=== PATIENT | female | born 1985 | race Caucasian/White ===

== ENCOUNTER 2018-04-14 14:16 | Inpatient (IN) | payer OTHER ==
[~2018-04-14] VITALS: Ht 172.7 cm; Wt 91.0 kg
--- OUTSIDE RECORDS SUMMARY | ~2018-04-14 | XMS | Clinical Summary ---
Demographics + + + | Address | [address] | | | [place] [address] | + + + | Home Phone | | + + + | Preferred Language | Unknown | + + + | Marital Status | | + + + | Mandaeism Affiliation | Unknown | + + + | Race | Unknown | + + + | Ethnic Group | Unknown | + + + Author + + + | Author | [facility] | | | and Rasheed[place] | + + + | Organization | [facility] | | | and [place] | + + + | Address | Unknown | + + + | Phone | Unavailable | + + + Support + + +---------+ + | Name | Relationship | Address | Phone | + + +---------+ + | KERON PEREA | ECON | Unknown | | + + +---------+ + Care Team Providers + +------+ + | Care Senior Hardware Engineer Name | Role | Phone | + +------+ + PP | Unavailable | + +------+ + Allergies Not on File Current Medications Not on file Active Problems Not on file Social History + +-------+ +--------+------+ | Tobacco Use | Types | Packs/Day | Years | Date | | | | | Used | | + +-------+ +--------+------+ | Never Assessed | | | | | + +-------+ +--------+------+ + + + | Sex Assigned at | Date Recorded | | | | + + + | Not on file | | + + + Plan of Treatment + + + + + | Health Maintenance | Due Date | Last Done | Comments | + + + + + | Vaccine: | | | | | Dtap/Tdap/Td (1 - | 4 | | | | Tdap) | | | | + + + + + | Cervical Cancer | | | | | Screening (Pap) | 5 | | | + + + + + | Vaccine: Influenza | | | | | (#1) | 8 | | | + + + + + Results Not on filefrom Last 3 Months Insurance + +--------+ +------+ +---------+ | Payer | Benefi | Subscriber | Type | Phone | Address | | | t Plan | ID | | | | | | / | | | | | | | Group | | | | | + +--------+ +------+ +---------+ | [employer] | PACIFI | [id number] | PPO | [phone] | | | [employer] | | | [id number] | | | | E PSN | | | | | | | PREFER | | | | | | | RED | | | | | + +--------+ +------+ +---------+ + +--------+ +--------+ + + | Guarantor Name | Accoun | Relation to | Date | Phone | Billing Address | | | t Type | Patient | of | | | | | | | | | | + +--------+ +--------+ + + | GEORGES PEREA | Person | Self | [birth year] | Work: | [address] | | | al/Fam | | 1985 | [phone] | [place] [address] | | | mary | | | [phone] Home: | | | | | | | | | | | | | | [phone] | | | | | | [phone] | | + +--------+ +--------+ + +"
--- NOTE | 2018-05-05 08:23 | NUR ---
05/05/18 0823 Lavinia Goodman 0880-PATIENT ARRIVED BACK TO ROOM 105 AWAKE DENIES PAIN OR NAUSEA. SR. RR EVEN. O2 SAT 97% FUNDUS RIGHT SIDE AT UMBILICUS LIGHT RURBRA DRAINAGE. MCCONNELL CATHETER DRAINING CLEAR YELLOW. FAMILY AT BEDSIDE.
--- NOTE | 2018-05-06 08:14 | PR ---
[facility] [address] [facility] [place] [address] Signed PP Progress Notes Datetime Report Generated by CPN: 05/06/2018 08:14 SUBJECTIVE: [id number] Pain: Within normal limits Nausea/Vomiting: Denies Vital Signs: [id number] Vital Signs: Reviewed; Within Normal Limits Notable Details: PP Hgb/Hct = 10.8/33.7 EXAM: [id number] Abdomen/Uterus: Normal Lochia: Normal Extremities: Normal Incision: Normal IMPRESSION/PLAN/PROCEDURES: [id number] Impression: Normal progression Plan: Continue present management Procedures: None Progress Notes: Doing well, without complaint. IV and Smith out, voiding and moving without difficulty. Signing Physician: Jakub Washington MD Copies: ~ *Electronically Signed* 05/06/18813 JAKUB WASHINGTON MD PATIENT NAME: GEORGES VEGA PROGRESS NOTE DATE OF : 83 PHYSICIAN: JAKUB WASHINGTON MD RPT #: [id number] REPORT IS CONFIDENTIAL AND NOT TO BE RELEASED WITHOUT AUTHORIZATION
--- NOTE | 2018-05-06 08:17 | OR ---
[facility] [address] [place] [id number] Signed DATE OF OPERATION: 05/05/2018 SURGEON: Ibrahmia Nicole MD Patient of Dr. Nicole. PREOPERATIVE DIAGNOSIS: Term , previous section x2. POSTOPERATIVE DIAGNOSIS: Term , previous section x2. PROCEDURE PERFORMED: Repeat low transverse segment section, delivery live female infant. DIRECT SUPPORT STAFF MEMBER: Dr. Juárez. ANESTHESIA: Spinal. ESTIMATED BLOOD LOSS: 300 mL. COMPLICATIONS: None. DRAINS: Smith to bladder. FINDINGS: Live female , Apgars 9 and 9. Weight 6 pounds 11 ounces. Uterus had a very thin lower segment with the bladder somewhat elevated, otherwise no adhesions. Normal tubes and ovaries bilateral. DESCRIPTION OF PROCEDURE: The patient was brought to the operating room, placed in supine position. After adequate spinal anesthesia was obtained, she was prepped and draped in usual sterile fashion. A Smith catheter was placed in the bladder. Electronically Signed By: IBRAHIMA NICOLE MD 05/06/18 0817 PATIENT NAME: GEORGES VEGA OPERATIVE REPORT DATE OF : 83 REPORT #: [id number] PHYSICIAN: IBRAHIMA NICOLE MD PCP: ARCENIO MALHOTRA REPORT IS CONFIDENTIAL AND NOT TO BE RELEASED WITHOUT AUTHORIZATION [address] [address] Signed Pfannenstiel skin incision was made with a scalpel through previous skin incision. Subcutaneous tissue was dissected with a scalpel and Bovie. The fascia was nicked with scalpel and extended in transverse fashion using curved scissors. The underlying abdominal musculature was bluntly and sharply from the fascia above and below the incision. The abdominal musculature was bluntly and sharply along the midline. The peritoneum was fairly adherent to the anterior abdominal wall cephalad and this was opened at the same time caudally. The abdominal muscle and peritoneum were with finger dissection and the peritoneum carefully opened with curved Mayos. The Panda self-retaining retractor was inserted into the incision and tightened in place. The lower uterine segment was identified. The bladder was noted to be somewhat elevated up the lower uterine segment, more on the right and on the left, and the lower uterine segment noted to be quite thin. The lower uterine segment was nicked with the scalpel a little bit higher and to avoid the bladder, and the incision extended in a transverse fashion using finger dissection, clear fluid came from the incision. The infant was noted to be in ELLIS presentation. 's head easily delivered from the incision, the rest of the was easily delivered from the incision. The cord was doubly clamped and cut. The passed off the table in good condition to awaiting nurse. Cord blood was obtained, then a small section of cord was clamped and cut, and passed off to be held, the placenta was then manually removed, the uterine cavity explored a lap pad to remove any retained membranes. The incision was quite thin. Angle stitch of 0 Monocryl was placed at one in the incision and a running locking stitch of 0 Monocryl starting at the other end used to close the incision. Care was taken particularly on the right side to avoid the bladder, which was very close to the incision. A 2nd running stitch of 0 Monocryl was used to imbricate the 1st layer, again stopping before reaching the right angle because of the closeness of the bladder. Good hemostasis was noted except for one small area on the left side above the incision, this was closed with a gxcaxh-vc-bjzyz stitch of 0 Monocryl. When good hemostasis was obtained, the entire pelvis was irrigated, suctioned, examined, and noted to have good hemostasis. The Panda retractor was removed and sheet of ACell was placed over lower uterine segment to help with healing. The anterior wall peritoneum was closed using running stitch of 2-0 Vicryl suture. The abdominal musculature was reapproximated using interrupted stitches of 0 Vicryl suture. The abdominal wall incision was irrigated, suctioned, examined, any bleeding spots cauterized with the Bovie. The fascia was closed using two running stitch of 0 Vicryl suture meeting in the midline. Subcutaneous tissue was irrigated, suctioned, and examined and any bleeding spots cauterized with the Bovie. Subcutaneous tissue was then closed using interrupted stitches of 3-0 Vicryl suture. The skin was reapproximated using skin clips. The patient tolerated the procedure well and went to recovery room in good condition. The sponge, needle, and instrument counts were correct at the end of the procedure. Electronically Signed By: IBRAHIMA NICOLE MD 05/06/18 0817 PATIENT NAME: GEORGES VEGA OPERATIVE REPORT DATE OF : 83 REPORT #: [id number] PHYSICIAN: IBRAHIMA NICOLE MD PCP: ARCENIO MALHOTRA PAC REPORT IS CONFIDENTIAL AND NOT TO BE RELEASED WITHOUT AUTHORIZATION [address] [address] Signed MD YASH Grayson/MODL /[id number] Copies: ~ Electronically Signed By: IBRAHIMA NICOLE MD 05/06/18816 PATIENT NAME: GEORGES VEGA OPERATIVE REPORT DATE OF : [birth year] REPORT #: [id number] PHYSICIAN: IBRAHIMA NICOLE MD PCP: ARCENIO MALHOTRA PAC REPORT IS CONFIDENTIAL AND NOT TO BE RELEASED WITHOUT AUTHORIZATION
--- NOTE | 2018-05-07 10:31 | PR ---
[facility] [address] [place] [address] Signed PP Progress Notes Datetime Report Generated by CPN: 05/07/2018 10:31 SUBJECTIVE: [id number] Pain: Within normal limits Nausea/Vomiting: Denies Vital Signs: [id number] Vital Signs: Reviewed; Within Normal Limits Notable Details: PP Hgb/Hct = 10.8/33.7 EXAM: [id number] Abdomen/Uterus: Normal Lochia: Normal Extremities: Normal Incision: Normal IMPRESSION/PLAN/PROCEDURES: [id number] Impression: Normal progression Plan: Discharge Procedures: None Progress Notes: Doing well, without complaint. Ready to go home. Signing Physician: Jakub Washington MD Copies: ~ *Electronically Signed* 05/07/18 1031 JAKUB WASHINGTON MD PATIENT NAME: GEORGES VEGA PROGRESS NOTE DATE OF : 83 PHYSICIAN: JAKUB WASHINGTON MD RPT #: [id number] REPORT IS CONFIDENTIAL AND NOT TO BE RELEASED WITHOUT AUTHORIZATION
== END 2018-05-07 11:30 | disposition home or self-care (01) | DRG 788 ==
LOC: FBC 05-05 05:35
PROVIDERS: ADMIT General Practice
PROC: 10D00Z1 Extraction of Products of Conception, Low, Open Approach (ICD-10-PCS; principal; 2018-05-05 06:45)
DX: O34.211 Maternal care for low transverse scar from previous cesarean delivery (principal); N85.8 Other specified noninflammatory disorders of uterus; Z3A.39 39 weeks gestation of pregnancy; Z37.0 Single live birth
CPT/HCPCS: 01961; 36415; 85027; C1763; J0131; J0690; J1100; J2274; J2370; J2405; J2550; J2590; J3010; J7120

== ENCOUNTER 2018-10-12 08:41 | Emergency (ER) | payer OTHER ==
[~2018-10-12] VITALS: Ht 170.2 cm; Wt 90.7 kg
== END 2018-10-12 10:11 | disposition home or self-care (01) ==
LOC: ED 08:41
DX: S50.312A Abrasion of left elbow, initial encounter (principal); Z88.0 Allergy status to penicillin; W18.30XA Fall on same level, unspecified, initial encounter
CPT/HCPCS: 73080; 99283

== ENCOUNTER 2020-07-20 22:42 | Observation (INO) | payer OTHER ==
[~2020-07-20] VITALS: Ht 172.7 cm; Wt 77.3 kg
[2020-07-20] MEDS ORDERED: ADDERALL XR 3030 MG PO (23:26)
--- NOTE | 2020-07-21 02:10 | NUR ---
PATIENT ARRIVED TO GA VIA STRETCHER. ABLE TO TRANSFER SELF TO BED. VITALS AND ASSESSMENT COMPLETE, PT STATES CURRENT PAIN LEVEL 3-4/10, DENIES NEED FOR PAIN MEDS AT THIS TIME. ORIENTED TO ROOM, GRAVURE PRINTING MACHINIST IN ROOM FOR ADMISSION. CALL LIGHT IN REACH, PT STATES NO OTHER NEEDS. IVF INFUSING WNL. WILL CONT TO MONITOR
--- NOTE | 2020-07-21 02:10 | NUR ---
PATIENT ARRIVES FROM ER ON STRETCHER, AMBULATORY TO HOSPITAL BED. pt RATES PAIN 3/10 IN RLQ, DENIES NEED FOR PRN MEDICATION AT THIS TIME. ORIENATION TO ROOM PROVIDED. NPO, pt VERBALIZES UNDERSTANDING. CALL LIGHT IN REACH.
--- NOTE | 2020-07-21 03:40 | NUR ---
ROUNDED ON PATIENT, PT REPORTS 5/10 PAIN AND REQUESTS PRN MEDICATION, ADMINISTERED. IVF INFUSING WNL. ASSESSMENT COMPLETE, PT STATUS REMAINS UNCHANGED AT THIS TIME. CALL LIGHT IN REACH, NO OTHER NEEDS.
--- NOTE | 2020-07-21 04:08 | NUR ---
VERIFIED LAB ORDER WITH CONNIE GORDON, UPDATED ORDER FOR LABS TO BE DRAWN TODAY (07/21) AT O600.
--- NOTE | 2020-07-21 05:45 | NUR ---
VITALS AND I/O'S COMPLETE, LR HUNG ON STRAIGHT TUBING, PREOP CHECKLIST STARTED. PT STATES PAIN 3/10 CURRENTLY, DENIES NEED FOR PAIN MEDICATION AT THIS TIME. IVF INFUSING WNL. CALL LIGHT IN REACH, NO OTHER NEEDS REPORTED.
--- NOTE | 2020-07-21 06:21 | NUR ---
CALL LIGHT ANSWERED. pt C/O 12/10 PAIN IN RLQ. PRN PAIN MEDICATION ADMINISTERED. IVF INFUSING WNL ORDERED. CALL LIGHT IN REACH, LIGHTS OFF IN ROOM.
--- NOTE | 2020-07-21 07:10 | NUR ---
THIS RN RECIEVED REPORT FROM EMILE GORDON. PT STATES THAT HER PAIN IS MANAGED OKAY AT THIS TIME AND NEEDS NOTHING FURTER
--- NOTE | 2020-07-21 08:15 | NUR ---
THIS RN IN PTS ROOM TO START PTS ANTIBIOTIC. THIS RN ASKED PT HER PAIN LEVEL. PT STATED THAT HER PAIN WAS OKAY FOR NOW, PT STATED THAT SHE REALLY DOESN'T LIKE TO TAKE PAIN MEDS. THIS RN DISCUSSED WITH HER THAT SHE CAN CHOOSE TO HAVE PAIN MEDS WHEN SHE NEEDED THEM AT THIS POINT. PT STATED THAT SHE WILL CALL WHEN SHE IS READY FOR MORE PAIN MEDS
--- NOTE | 2020-07-21 09:30 | NUR ---
THIS RN IN PTS ROOM TO CHECK ON HER PAIN LEVEL AFTER CHARGE NURSE JESS GAVE PT 2MG OF MORPHINE. PT STATED THAT SHE WAS FEELING BETTER PAIN RICE AFTER THE PAIN MEDS.
--- NOTE | 2020-07-21 10:07 | NUR ---
THIS RN IN PTS ROOM PER PT REQUEST DUE TO PT STATING THAT SHE WAS FEELING SICK. THIS RN PROVIDED PT WITH 4MG OF ZOFRAN. THIS RN DISCUSSED WITH PT THAT WE SHOULD SHORTLY. PT STATED THAT SHE WAS FEELING WORSE. THIS RN DISCUSSED WITH HER THAT THIS RN WILL CALL TO FIND OUT WHAT HIS PLAN IS FOR THE DAY. PT STATED UNDERSTANDING
--- NOTE | 2020-07-21 10:30 | NUR ---
THIS RN TALKED TO PTS SISTER PER SISTER AND PTS REQUEST TO GIVE HER AN UPDATE ON WHAT THE PLAN FOR THE DAY WAS. THIS RN STATED THAT SHE WAS JUST ABOUT TO CALL TO SEE WHAT HIS PLAN FOR THE DAY WAS. PTS SISTER STATED UNDERSTANDING
--- NOTE | 2020-07-21 10:34 | NUR ---
THIS RN CALLED TO SEE WHAT HIS PLAN WAS, STATED HE WILL BE COMING IN SOON. THIS RN UPDATED PT, PT STATED THAT SHE WILL UPDATE HER SISTER, PT STATES THAT SHE IS GLAD TO HEAR THAT HE WILL BE IN SHORTLY
--- NOTE | 2020-07-21 12:07 | NUR ---
PATIENT GIVEN PEPCID PRE PROCEDURE. SURGERY TUBING/FLUID READY.
--- NOTE | 2020-07-21 12:34 | NUR ---
PT OFF FLOOR TO SURGERY AT THIS TIME.
--- NOTE | 2020-07-21 14:30 | NUR ---
07/21/20 1430 Juárez,Saranya Kraft O2 MASK REMOVED. PATIENT ON ROOM AIR WITH ORAL AIRWAY IN PLACE.
--- NOTE | 2020-07-21 15:21 | NUR ---
PT ARRIVED FROM SURGERY. PT A BIT DROWSY BUT ANSWERS QUESTIONS APPROPRIATLEY. PT HAS 3 LAP SITES, ALL IN MIDLINE, ALL ARE CLEAN/ DRY/ INTACT. PT DENIES PAIN AND NAUSEA AT THIS TIME.
--- NOTE | 2020-07-21 16:05 | NUR ---
THIS RN IN PTS ROOM TO CHECK ON PT FOR POST OPP VITALS. PT AWAKE AND ALERT. PT STATES THAT SHE HAS NO PAIN OR NAUSEA. PT STATES THAT SHE IS READY TO EAT SOMETHING, THIS RN PROVIDED PT WITH CRACKERS, 7-UP AND JELLO.
--- NOTE | 2020-07-21 16:40 | NUR ---
IV TAKEN OUT UPON RN REQUEST. CATH INTACT AND LOOKED GOOD, RN NOTIFIED.
--- NOTE | 2020-07-22 12:01 | OR ---
[facility] [address] [place], [place] [address] Signed DATE OF OPERATION: 07/21/2020 SURGEON: Michela Vargas MD PREOPERATIVE DIAGNOSIS: Right lower abdominal pain persistent with elevated white blood cell count, normal CT scan except for pelvic fluid. POSTOPERATIVE DIAGNOSES: 1. Inflamed left ovarian cyst 2.5 cm. 2. Appendix with mild inflammation. PROCEDURE: 1. Laparoscopy. 2. Laparoscopic appendectomy. 3. Laparoscopic left ovarian cystectomy (enucleation technique). ANESTHESIA: General endotracheal; Deepika Galileo, SALES DEMONSTRATOR and local 10 mL of 0.25% Marcaine with epinephrine. INDICATION: This 34-year-old white woman was seen in the emergency room last night with severe and unrelenting sudden right lower abdominal pain. She was evaluated by Dr. Kinney. A CT scan was performed, which showed no visualization of the appendix itself. There is some pelvic fluid, but no sign of pericecal inflammation per se. Adnexal structures were considered normal. My review does not show distinct findings regarding the ovaries. The appendix is not well visualized, though there clearly is some pelvic fluid. She was admitted, given intravenous fluid resuscitation, IV antibiotic cefoxitin, and possible diagnosis of appendicitis and re-evaluation has been undertaken, which shows mild tenderness in the right lower quadrant and equivocal Rovsing's sign and psoas sign and negative obturator sign. I have recommended laparoscopy on the high probability this represents a pelvic ovarian cystic problem. It is noted she has had ovarian cyst in the past. Appendectomy would be anticipated whether inflamed or not. The risks of bleeding, infection, failure of diagnosis, missed diagnosis, and need for other indicated procedures were reviewed in detail. She understands and wished to proceed. FINDINGS: There was inflammatory fluid in the pelvis to a degree. There was no tru blood. The appendix was slightly congested, but it did not have signs of suppurative inflammation Electronically Signed By: MICHELA VARGAS MD 07/22/20 1201 PATIENT NAME: GEORGES VEGA OPERATIVE REPORT DATE OF : 83 REPORT #: [id number] PHYSICIAN: MICHELA VARGAS MD PCP: ARCENIO MALHOTRA PAC REPORT IS CONFIDENTIAL AND NOT TO BE RELEASED WITHOUT AUTHORIZATION [facility] [address] [place], [place] [address] Signed per se. Appendectomy was performed nevertheless. The terminal ileum appeared normal. Found in the pelvis was normal-appearing uterus, normal right tube and ovary, but on the left side, an inflamed and enlarged left ovarian cyst. This cyst was enucleated and excised completely. There were no other findings of concern or findings of what would account for her symptoms. Of note, the gallbladder was visualized and showed possible mild chronic inflammation and its position was high in the abdomen as would be typical. Liver itself appeared normal. DESCRIPTION OF PROCEDURE: The patient was brought to the operating room, given a general endotracheal anesthetic. Preoperative antibiotic cefoxitin was given. A Smith catheter was placed. The abdomen was prepared with a chlorhexidine solution and draped sterilely. A transverse incision from infancy at the time of umbilical hernia repair with complete excision of the umbilicus was noted. Palpation revealed the site of the umbilicus itself. A vertically-oriented small incision was made and what would be inferior to the umbilicus itself was still present. Dissection was carried through the subcutaneous tissue. Fascia was divided using an open Delonte cannula technique. The abdomen entered and pneumoperitoneum achieved to a level of 14 mmHg of carbon dioxide gas. Intraabdominal inspection showed no sign of ascites or carcinomatosis. The liver appeared normal as that was the tip of the gallbladder with mild chronic inflammation. Examination of the right side showed some inflammatory fluid in the pelvis and the organs were otherwise obscured from view at that point. A 12 mm epigastric port was placed and the camera was placed to the right side. Single hand manipulation with the grasper in the region of the umbilicus delivered a very mobile cecum and ileum into view showing the ileum to be normal. The appendix was visualized and did not appear acutely inflamed per se, but was mildly congested and not soft and diminutive by any means. A 5 mm suprapubic port was placed under direct visualization allowing for two hand manipulation of the ileocecal valve and the appendix. Examination of the pelvic organs showed normal uterine fundus, normal right tube and ovary, but on the left, a normal tube and a violaceous inflamed cyst of the left ovary. Mindful that most likely the ovary was accounting for her symptoms, given the ambiguous findings on CT scan, plans were first made for appendectomy. The appendix was elevated and a window created between the appendix and mesoappendix with electrocautery and using an Endo-CHATO stapling device, the appendix was transected flush with the cecum. Good hemostasis was noted on the suture staple line. The mesoappendix was similarly transected again showing good hemostasis. The appendix was withdrawn into the infraumbilical port, which was then extracted and offloaded. Palpation of the appendix showed it to be reasonably soft and without obvious fecalith. Irrigation was undertaken in the site of the appendectomy, showing no untoward bleeding. Electronically Signed By: MICHELA VARGAS MD 07/22/20 1201 PATIENT NAME: GEORGES VEGA OPERATIVE REPORT DATE OF : 83 REPORT #: [id number] PHYSICIAN: MICHELA VARGAS MD PCP: ARCENIO MALHOTRA PAC REPORT IS CONFIDENTIAL AND NOT TO BE RELEASED WITHOUT AUTHORIZATION [facility] [address] [place], [place] [address] Signed The patient was then turned a bit more [id number]. Examination then undertaken the pelvic organs. The uterus was manipulated into view as were the right adnexal structures and the right tube was entirely normal. The ovary was normal also. Examination on the left side showed a violaceous inflamed cyst of the left ovary. The tube was normal. There was no sign of torsion or other problem. Operating position was changed to the patients right side to adress the left pelvid issues. Using electrocautery with a hook device, the border between the cyst and [place] ovary was gently cauterized and then manipulated, ultimately freeing the cyst almost to the end of dissection in a complete and whole manner. A small amount of cystic fluid did egress from the cyst once it was entirely explanted from the ovarian parenchyma. It was placed in an Endobag and extracted through the infraumbilical port site, and passed for pathology. Inspection of the inner aspect of the remaining ovarian remnant showed that the ovary with resected cyst appeared to be hemostatic. A Small amount of cautery was nevertheless applied. Oversewing of the ovarian parenchyma was deemed unnecessary and meddlesome. Irrigation fluid was suctioned free. Reinspection of the operative site at the cecum allowed for visualization of the terminal ileum, which was normal. The upper abdomen was examined more fully and there were no other findings of concern. The trocars were removed under direct visualization showing no sign of bleeding. The infraumbilical fascial incision was reapproximated with interrupted 0 Vicryl suture. The patient had some desire for umbilicoplasty to be incidentally performed if possible. This was accomplished in a technique of 3-0 PDS suture, pexing the depths of the umbilical fascia to the dermis of the superior aspect of the umbilicus drawing the tissue down to the umbilical fascia. The remaining infraumbilical incision site was closed partially with interrupted 3-0 Vicryl and the resultant reconstructed umbilicus looked surprisingly good. Whether it will be durable or long-lasting remains to be determined. A 10 mL of 0.25% Marcaine with epinephrine injected locally and Steri-Strips applied. Two cotton balls were applied to the umbilicus to assist in postoperative remodeling of umbilical fold that had been excised in her childhood. The patient was ultimately extubated and transferred to the recovery room in good condition, having suffered no complications. Sponge, needle, and counts reported as correct x3. Electronically Signed By: MICHELA VARGAS MD 07/22/20 1201 PATIENT NAME: GEORGES VEGA OPERATIVE REPORT DATE OF : 83 REPORT #: [id number] PHYSICIAN: MICHELA VARGAS MD PCP: ARCENIO MALHOTRA [facility] REPORT IS CONFIDENTIAL AND NOT TO BE RELEASED WITHOUT AUTHORIZATION [facility] [address] [place] [id number] Signed Michela Vargas MD JM/MODL /[id number] cc: Dr. Kinney Copies: ~ Electronically Signed By: MICHELA VARGAS MD 07/22/20 1201 PATIENT NAME: GEORGES VEGA OPERATIVE REPORT DATE OF : 83 REPORT #: [id number] PHYSICIAN: MICHELA VARGAS MD PCP: ARCENIO MALHOTRA PAC REPORT IS CONFIDENTIAL AND NOT TO BE RELEASED WITHOUT AUTHORIZATION
--- NOTE | 2020-07-22 12:01 | HP ---
[facility] [address], [place] [address] Signed ADMISSION DATE: 07/20/2020 REASON FOR ADMISSION: This 34-year-old white woman presented to the emergency room with rather significant right lower abdominal pain. She felt nagging pain in the lower abdomen throughout the day, which worsened and progressed in intensity and is considered constant severe sharp and stabbing and located in the right lower quadrant. The patient did have at least two episodes of diarrhea documented by Dr. Kinney, emergency room physician. She had no associated nausea, vomiting, or known fever. She had no upper abdominal pain. Her evaluation in the emergency room included a CT scan, which did not show visualization of the appendix. There was some fluid in the cul-de-sac. The ovaries were not well visualized. The uterus and adnexa otherwise appeared normal. She was directly admitted for further evaluation and care. LABORATORY STUDIES: Showed an elevated white count of 13. Beta HCG was negative and urinalysis was normal. Her COVID-19 rapid test was negative as well. Her Chem profile was essentially normal. Creatinine noted to be 0.89. Liver enzymes were normal. Lipase low at 10. Beta HCG was negative. She was directly admitted to the hospital and given IV antibiotic cefoxitin. Emergency room physician, Dr. Kinney was quite convinced this represented appendicitis despite the nondiagnostic CT scan. Currently, the patient feels slightly better since admission, but the pain is still present. It has not changed in character except, but is much less in intensity. PAST MEDICAL HISTORY: There is notable for history of ovarian cyst, which she says were "different" than last time. She has had x3 and sinus surgery and tonsillectomy and adenoidectomy. SOCIAL HISTORY: She uses no drugs illicitly. She does not smoke. Does not drink alcohol routinely. ALLERGIES: Include penicillin (hives). REVIEW OF SYSTEMS: She denies any shortness of breath or chest pain. She has had no menstrual period in seven weeks. She is "irregular" in that regard. She denies any upper abdominal pain. Electronically Signed By: MICHELA VARGAS MD 07/22/20 1201 PATIENT NAME: GEORGES VEGA HISTORY AND PHYSICAL DATE OF : 83 REPORT #: [id number] PHYSICIAN: MICHELA VARGAS MD PCP: ARCENIO MALHOTRA REPORT IS CONFIDENTIAL AND NOT TO BE RELEASED WITHOUT AUTHORIZATION [facility] [address], [place] [address] Signed No back pain. PHYSICAL EXAMINATION: GENERAL: Pleasant white woman, who looks to be nontoxic. She is accompanied by her vuuvaj-et-jci, Iza MILLER. VITAL SIGNS: Height is 5 feet 8 inches, weight 77.3 kg, BMI 26. NECK: Shows no thyromegaly or cervical adenopathy. Trachea is midline. CHEST: Clear. HEART: Regular without murmur. ABDOMEN: Nondistended and soft. Rovsing's sign is equivocal. She does not have point tenderness at McBurney's area. Obturator's sign is equivocal and psoas sign mildly positive. EXTREMITIES: Show no clubbing, cyanosis, or edema. ASSESSMENT AND PLAN: I suspect the patient has a ruptured ovarian cyst. Although appendicitis is possible. My review of the CT scan does not visualize the appendix, though it does appear there may be a fecalith in the area. There is no surrounding inflammatory change of the mesentery of the terminal ileum or cecum. There was some fluid in the cul-de-sac and visualization of the ovaries is not particularly clear. The ruptured hemorrhagic ovarian cyst may be the underlying source of her rather severe and ongoing pain. I would recommend laparoscopy and appendectomy whether appendix is normal or not with special attention to the right adnexa. If an ovarian cyst is noted that can be resected or otherwise tended to. Irrigation will be undertaken as well. Other possibilities in the differential diagnosis includes terminal ileitis (unlikely), ovarian torsion (unlikely) based on imaging or other abnormalities of the ovary or fallopian tube. She will take this under advisement and we will plan for operation soon. The risks of bleeding, infection, need for open procedure, failure to diagnosis, and other unforeseen complications were reviewed in detail. She understands and wished to proceed. MD TAQUERIA Pate/DORAL /[id number] Electronically Signed By: MICHELA VARGAS MD 07/22/20 1201 PATIENT NAME: GEORGES VEGA HISTORY AND PHYSICAL DATE OF : 83 REPORT #: [id number] PHYSICIAN: MICHELA VARGAS MD PCP: ARCENIO MALHOTRA PAC REPORT IS CONFIDENTIAL AND NOT TO BE RELEASED WITHOUT AUTHORIZATION [address] [address] Signed cc: Dr. Kinney Copies: ~ Electronically Signed By: MICHELA VARGAS MD 07/22/20 1201 PATIENT NAME: GEORGES VEGA HISTORY AND PHYSICAL DATE OF : [birth year] REPORT #: [id number] PHYSICIAN: MICHELA VARGAS MD PCP: ARCENIO MALHTORA PAC REPORT IS CONFIDENTIAL AND NOT TO BE RELEASED WITHOUT AUTHORIZATION
--- NOTE | 2020-07-25 17:44 | PATH ---
[facility] [address] [place], [place] [address] Signed SPECIMEN(S): A APPENDIX SPECIMEN(S): B LEFT OVARIAN CYST SPECIMEN SOURCE: A. APPENDIX B. LEFT OVARIAN CYST CLINICAL HISTORY: Pre: RL abd. pain. Post: Acute appy, L ovarian cyst. FINAL PATHOLOGIC DIAGNOSIS: A. Appendix, appendectomy: - Appendix with acute serositis. - See comment. B. Cyst, left ovary, excision: - Hemorrhagic corpus luteum cyst with adjacent ovarian parenchyma. COMMENT: Regarding specimen A: The appendix was entirely submitted for histologic examination. Acute inflammation is limited to the serosa of the appendix and is not seen within the appendiceal mucosa or wall. A focal calcification with associated foreign body-type giant cell is present in the subserosa, a non-specific finding that could be due to an intraabdominal process. The presence of inflammation limited to the serosa suggests an intraabdominal source of irritation/infection, rather than a primary appendiceal source. Correlation with surgical and imaging findings is recommended. As part of [facility]' Quality Improvement Program, this case was reviewed by another member of our pathology staff. NAL:NRT:cml:C2NR MICROSCOPIC EXAMINATION: Histologic sections of all submitted blocks are examined by light microscopy. These findings, together with the gross examination, support the pathologic diagnosis. GROSS DESCRIPTION: Two specimens are received in two containers, labeled "Georges Perea." A. The specimen, labeled " Georges Perea," and designated on the requisition "appendix," is received in formalin and consists of Specimen: Appendix with mesoappendix. PATIENT NAME: GEORGES PEREA PATHOLOGY DATE OF : 83 REPORT #: [id number] PHYSICIAN: KALLIE MOLINA PCP: ARCENIO MALHOTRA PAC REPORT IS CONFIDENTIAL AND NOT TO BE RELEASED WITHOUT AUTHORIZATION [facility] [address] [place], [place] [address] Signed Dimensions: 5.4 x 0.9 cm. Serosa: [place]-ramos and smooth. Perforation: Not grossly identified. Inking: Staple line is inked. Mucosa: [place]-red and finely granular. Fecalith: Not grossly identified. Additional: None. The appendix is entirely submitted in cassettes (A1-A2). B. The specimen, labeled " Georges Perea," and designated on the requisition "left ovarian cyst," is received in formalin and consists of 1.9 x 1.8 x 0.8 cm collapsed cystic structure. The external surface is dark red and smooth. To the sectioning reveals an orange-ramos cyst wall with a clear watery fluid. The specimen is entirely submitted in cassette (B1). FB (under the direct supervision of a pathologist) The Gross Description was prepared using a voice recognition system. The report was reviewed for accuracy; however, sound-alike word errors, addition and/or deletions may occur. If there is any question about this report, please contact Client Services. PERFORMING LABORATORY: The technical component was performed by [facility] [address] (Museum Guide: Lorena Mays MD; CLIA# [id number]). [facility] [address] [place] [id number] (CLIA# [id number]). Diagnostician: Viridiana Dumont MD Pathologist Electronically Signed 07/25/2020 Copies: ~ PATIENT NAME: GEORGES PEREA PATHOLOGY DATE OF : 83 REPORT #: [id number] PHYSICIAN: KALLIE MOLINA PCP: ARCENIO MALHOTRA PAC REPORT IS CONFIDENTIAL AND NOT TO BE RELEASED WITHOUT AUTHORIZATION
== END 2020-07-21 16:45 | disposition home or self-care (01) ==
LOC: ED 22:42 → MS 22:44
PROVIDERS: ADMIT Surgery; ATTEND Surgery
PROC: 0DTJ4ZZ Resection of Appendix, Percutaneous Endoscopic Approach (ICD-10-PCS; principal; 2020-07-20)
PROC: 0UB14ZZ Excision of Left Ovary, Percutaneous Endoscopic Approach (ICD-10-PCS; 2020-07-20)
DX: K35.33 Acute appendicitis with perforation, localized peritonitis, and gangrene, with abscess (principal); N83.202 Unspecified ovarian cyst, left side; G43.909 Migraine, unspecified, not intractable, without status migrainosus; K21.9 Gastro-esophageal reflux disease without esophagitis; F98.8 Other specified behavioral and emotional disorders with onset usually occurring in childhood and adolescence; Z88.0 Allergy status to penicillin; Z79.899 Other long term (current) drug therapy; Z20.828 Contact with and (suspected) exposure to other viral communicable diseases
CPT/HCPCS: 00840; 36415; 74177; 80053; 81001; 83690; 84703; 85025; 96366; 96375; 96376; 99285-25; C9803; G0378; J0330; J0694; J1100; J1790; J1885; J2001; J2250; J2270; J2405; J2550; J2704; J3475; J7121; Q9967; U0003